=== PATIENT | female | born 1970 | race Caucasian/White ===

== ENCOUNTER 2017-06-16 20:20 | Emergency (ER) | payer OTHER ==
--- NOTE | 2017-06-16 21:04 | ER Document Report ---
ED General - General Chief Complaint: Lower Abdominal Pain Stated Complaint: ABDOMINAL PAIN Time Seen by Provider: 06/16/17 20:57 Notes: This is a 47-year-old female patient who presents with chief complaint of left lower quadrant pain. Sudden onset approximately 1830. Sharp. Radiates to the labia. Some nausea. Pain was rated as a 4/5 on a numeric pain scale. No back pain. No fever. Patient did have a gastric bypass surgery in February 2017. TRAVEL OUTSIDE OF THE [place] IN LAST 30 DAYS: No - HPI Onset: Just prior to arrival - Related Data Allergies/Adverse Reactions: latex [Latex] Allergy (Severe, Verified 06/16/17 21:04) rash Past Medical History - General Information source: Patient - Social History Smoking Status: Never Smoker Cigarette use (# per day): No Frequency of alcohol use: Social Drug Abuse: None Lives with: Family Family History: Reviewed & Not Pertinent Patient has suicidal ideation: No Patient has homicidal ideation: No - Past Medical History Cardiac Medical History: Reports: Hx Hypertension Denies: Hx Coronary Artery Disease, Hx Heart Attack Pulmonary Medical History: Reports: Hx Asthma - hx in past no meds Denies: Hx Bronchitis, Hx COPD, Hx Pneumonia Neurological Medical History: Denies: Hx Cerebrovascular Accident, Hx Seizures Endocrine Medical History: Reports: Hx Diabetes Mellitus Type 2 Renal/ Medical History: Denies: Hx Peritoneal Dialysis GI Medical History: Musculoskeltal Medical History: Denies Hx Arthritis, Reports Hx Muscle Weakness - R. ankle Infectious Medical History: Past Surgical History: Reports: Hx Abdominal Surgery - gastric bypass, Hx Section - X2, Hx Gynecologic Surgery - UTERAN ABLASION, Hx Orthopedic Surgery - RIGHT ANKLE/RIGHT KNEE, Hx Tonsillectomy, Hx Tubal Ligation. Denies: Hx Pacemaker - Immunizations Hx Diphtheria, Pertussis, Tetanus Vaccination: Yes Review of Systems - Review of Systems Constitutional: denies: Fever, Malaise, Weakness EENT: denies: Blurred vision, Difficulty swallowing, Mouth swelling Cardiovascular: denies: Chest pain, Palpitations, Heart racing, Dyspnea, Lightheaded, Edema Respiratory: denies: Cough, Hurts to breathe, Hemoptysis, Short of breath, Wheezing Gastrointestinal: Abdominal pain, Vomiting. denies: Diarrhea, Nausea Genitourinary: denies: Burning, Dysuria, Discharge, Frequency, Urgency Female Genitourinary: denies: Vaginal discharge, Vaginal bleeding, Vaginal odor Musculoskeletal: denies: Back pain, Gout, Joint pain, Joint swelling, Muscle pain, Muscle stiffness Skin: denies: Dryness, Lumps, Rash Hematologic/Lymphatic: denies: Anemia, Blood clots, Easy bleeding, Easy bruising Neurological/Psychological: denies: Confusion, Dementia, Depression, Anxiety Physical Exam - Vital signs Vitals: Temp Pulse Resp BP Pulse Ox 98.1 F 76 14 145/105 H 100 06/16/17 20:27 06/16/17 20:27 06/16/17 20:27 06/16/17 20:27 06/16/17 20:27 Interpretation: Normal - General General appearance: Appears well, Alert - HEENT Head: Normocephalic, Atraumatic Eyes: Normal Pupils: PERRL - Respiratory Respiratory status: No respiratory distress Chest status: Nontender Breath sounds: Normal Chest palpation: Normal - Cardiovascular Rhythm: Regular Heart sounds: Normal auscultation Murmur: No - Abdominal Inspection: Normal Distension: No distension Bowel sounds: Normal Tenderness: Tender, Other - Mild tenderness palpation left lower quadrant. No guarding. No rebound. Organomegaly: No organomegaly Notes: Mild left lower quadrant tenderness. No guarding. No rebounding. - Back Back: Normal, Nontender - Extremities General upper extremity: Normal inspection, Nontender, Normal color, Normal ROM , Normal temperature General lower extremity: Normal inspection, Nontender, Normal color, Normal ROM , Normal temperature, Normal weight bearing. No: Tiara's sign - Neurological Neuro grossly intact: Yes Cognition: Normal Orientation: AAOx4 Ang Coma Scale Eye Opening: Spontaneous Ang Coma Scale Verbal: Oriented Saunemin Coma Scale Motor: Obeys Commands Ang Coma Scale Total: 15 Speech: Normal Motor strength normal: LUE, RUE, LLE, RLE Sensory: Normal - Psychological Associated symptoms: Normal affect, Normal mood - Skin Skin Temperature: Warm Skin Moisture: Dry Skin Color: Normal Course - Re-evaluation Re-evalutation: 06/16/17 21:34 Will order Toradol, Zofran, fluids, CT abdomen and pelvis, labs and reassess. 06/16/17 22:41 Laboratory 06/16/17 06/16/17 06/16/17 20:50 20:50 21:34 WBC 9.5 RBC 4.42 Hgb 12.8 Hct 37.6 MCV 85 MCH 28.8 MCHC 33.9 RDW 13.6 Plt Count 228 Seg Neutrophils % 61.6 Lymphocytes % 29.1 Monocytes % 7.9 Eosinophils % 0.7 Basophils % 0.7 Absolute Neutrophils 5.9 Absolute Lymphocytes 2.8 Absolute Monocytes 0.8 Absolute Eosinophils 0.1 Absolute Basophils 0.1 Sodium 139.4 Potassium 4.0 Chloride 105 Carbon Dioxide 22 Anion Gap 12 BUN 20 Creatinine 0.75 Est GFR ( Amer) > 60 Est GFR (Non-Af Amer) > 60 Glucose 108 Calcium 9.7 Total Bilirubin 0.3 Direct Bilirubin 0.2 Neonat Total Bilirubin Not Reportable Neonat Direct Bilirubin Not Reportable Neonat Indirect Bili Not Reportable AST 21 ALT 23 Alkaline Phosphatase 80 Total Protein 6.4 Albumin 4.3 Urine Color YELLOW Urine Appearance SLIGHTLY-CLOUDY Urine pH 7.0 Ur Specific [place] 1.011 Urine Protein NEGATIVE Urine Glucose (UA) NEGATIVE Urine Ketones 20 H Urine Blood LARGE H Urine Nitrite NEGATIVE Urine Bilirubin NEGATIVE Urine Urobilinogen NEGATIVE Ur Leukocyte Esterase NEGATIVE Urine WBC (Auto) 3 Urine RBC (Auto) >182 Urine Bacteria (Auto) TRACE Squamous Epi Cells Auto 3 Urine Mucus (Auto) MANY Urine Ascorbic Acid NEGATIVE Abdomen/Pelvis CT 06/16/17 21:09 IMPRESSION: NO ACUTE PROCESS IN THE ABDOMEN OR PELVIS. 06/16/17 23:10 Patient with significant amount of blood in your urine with sudden onset of pain that radiated down to the left lower quadrant into the labia region. CT scan does not show stone however based on her presentation and her symptoms more likely this is what is going on. Pain was completely resolved with Toradol. At this time I am recommending patient continue with oral hydration. Return in 24 hours or sooner if pain is getting worse or no better. Patient is comfortable with this plan. Anticipate discharge shortly. - Vital Signs Vital signs: Temp Pulse Resp BP Pulse Ox 98.1 F 76 14 145/105 H 100 06/16/17 20:27 06/16/17 20:27 06/16/17 20:27 06/16/17 20:27 06/16/17 20:27 - Laboratory Result Diagrams: 06/16/17 20:50 06/16/17 20:50 Laboratory results interpreted by me: 06/16/17 21:34 Urine Ketones 20 H Urine Blood LARGE H Discharge - Discharge Clinical Impression: Kidney stone on left side Condition: Good Disposition: HOME, SELF-CARE Instructions: Kidney Stone ([facility]) Additional Instructions: Based on your presentation and the fact that you have blood in your urine you more than likely had a kidney stone. In the event that your pain gets worse or no better over the next 12-24 hours it will be very important to return to the emergency department for repeat evaluation. Referrals: TRUONG BARRIOS MD [[facility]] - Follow up as needed
[2017-06-16] MEDS ORDERED: NORMAL SALINE 1000 ML 1,000 ML IV ONE (21:09)
[2017-06-16] MEDS ORDERED: KETOROLAC TROMETHAMINE INJ/PF 30 MG/1 ML SDV IV ONE (21:09)
[2017-06-16] MEDS ORDERED: ONDANSETRON HCL INJ/PF 4 MG/2 ML SDV IV ONE (21:10)
[2017-06-16 21:48] LABS: ABSOLUTE BASOPHILS # (AUTO) 0.1 10^3/uL (0.0-0.2); ABSOLUTE EOSINOPHILS # (AUTO) 0.1 10^3/uL (0.0-0.6); ABSOLUTE LYMPHOCYTES (AUTO) 2.8 10^3/uL (0.5-4.7); ABSOLUTE MONOCYTES (AUTO) 0.8 10^3/uL (0.1-1.4); ABSOLUTE NEUT (AUTO) 5.9 10^3/uL (1.7-8.2); BASOPHILS % (AUTO) 0.7 % (0-2); EOSINOPHILS % (AUTO) 0.7 % (0-6); HEMATOCRIT 37.6 % (36.0-47.0); HEMOGLOBIN 12.8 g/dL (12.0-15.5); LYMPHOCYTES % (AUTO) 29.1 % (13-45); MEAN CORPUSCULAR HEMOGLOBIN 28.8 pg (27.0-33.4); MEAN CORPUSCULAR HGB CONC 33.9 g/dL (32.0-36.0); MEAN CORPUSCULAR VOLUME 85 fl (80-97); MONOCYTES % (AUTO) 7.9 % (3-13); PLATELET COUNT 228 10^3/uL (150-450); RED BLOOD COUNT 4.42 10^6/uL (3.72-5.28); RED CELL DISTRIBUTION WIDTH 13.6 % (11.5-14.0); SEGMENTED NEUTROPHILS % (AUTO) 61.6 % (42-78); TOTAL CELLS COUNTED % (AUTO) 100 %; WHITE BLOOD COUNT 9.5 10^3/uL (4.0-10.5)
[2017-06-16 21:57] LABS: APPEARANCE,URINE SLIGHTLY-CLOUDY; BILIRUBIN,URINE NEGATIVE (NEGATIVE); COLOR,URINE YELLOW; GLUCOSE, URINE NEGATIVE (NEGATIVE); KETONES,URINE 20 mg/dL (NEGATIVE); LEUKOCYTE ESTERASE,URINE NEGATIVE (NEGATIVE); NITRITE,URINE NEGATIVE (NEGATIVE); PROTEIN,URINE NEGATIVE (NEGATIVE); URINE SPECIFIC GRAVITY 1.011; UROBILINOGEN,URINE NEGATIVE mg/dL (<2.0)
[2017-06-16 21:57] LABS: ALANINE AMINOTRANSFERASE 23 U/L (9-52); ALBUMIN 4.3 g/dL (3.5-5.0); ALKALINE PHOSPHATASE 80 U/L (38-126); ANION GAP 12 (5-19); ASPARTATE AMINO TRANSFERASE 21 U/L (14-36); BILIRUBIN,DIRECT 0.2 mg/dL (0.0-0.4); BILIRUBIN,TOTAL 0.3 mg/dL (0.2-1.3); BLOOD UREA NITROGEN 20 mg/dL (7-20); CALCIUM 9.7 mg/dL (8.4-10.2); CARBON DIOXIDE 22 mmol/L (22-30); CHLORIDE 105 mmol/L (98-107); GLUCOSE 108 mg/dL (75-110); SODIUM 139.4 mmol/L (137-145); TOTAL PROTEIN 6.4 g/dL (6.3-8.2)
--- NOTE | 2017-06-16 22:06 | RADIOLOGY REPORT (SQ) ---
EXAM DESCRIPTION: CT ABD/PELVIS NO ORAL OR IV COMPLETED DATE/TIME: 06/16/2017 9:42 pm REASON FOR STUDY: llq pain COMPARISON: None. TECHNIQUE: CT scan of the abdomen and pelvis performed without intravenous or oral contrast. Images reviewed with lung, soft tissue, and bone windows. Reconstructed coronal and sagittal MPR images revi ewed. All images stored on PACS. All CT scanners at this facility use dose modulation, iterative reconstruction, and/or weight based d osing when appropriate to reduce radiation dose to as low as reasonably achievable (ALARA). [facility]: Dose Right [facility]: CareDose [facility]: Dose Right [facility]: Teradose 4D [facility]: Smart Vacatia RADIATION DOSE: CT Rad equipment meets quality standard of care and radiation dose reduction techniq ues were employed. CTDIvol: 14.6 mGy. DLP: 786 mGy-cm.mGy. LIMITATIONS: None. FINDINGS: LOWER CHEST: No significant findings. No nodules or infiltrates. NON-CONTRASTED LIVER, SPLEEN, ADRENALS: Evaluation limited by lack of IV contrast. No identified sign ificant masses. PANCREAS: No masses. No peripancreatic inflammatory changes. GALLBLADDER: No identified stones by CT criteria. No inflammatory changes to suggest cholecystitis. RIGHT KIDNEY AND URETER: No suspicious masses. Assessment limited by lack of IV contrast. No signif icant calcifications. No hydronephrosis or hydroureter. LEFT KIDNEY AND URETER: No suspicious masses. Assessment limited by lack of IV contrast. No signifi cant calcifications. No hydronephrosis or hydroureter. AORTA AND RETROPERITONEUM: No aneurysm. No retroperitoneal masses or adenopathy. BOWEL AND PERITONEAL CAVITY: Prior gastric bypass. Sigmoid diverticulosis. No obvious masses or inf lammatory changes. No free fluid. APPENDIX: Normal. PELVIS, BLADDER, AND ABDOMINAL WALL:No abnormal masses. No free fluid. Bladder normal. BONES: No significant findings. OTHER: No other significant finding. IMPRESSION: NO ACUTE PROCESS IN THE ABDOMEN OR PELVIS. COMMENT: Quality ID # [id number]: Final reports with documentation of one or more dose reduction techniques (e.g., Automated exposure control, adjustment of the mA and/or kV according to patient size, use of iterative reconstruction technique) TECHNICAL DOCUMENTATION: JOB ID: [id number] [place]-72 2010 [employer]- All Rights Reserved Reading location - IP/workstation name: [email or web address]
[2017-06-16] MEDS ORDERED: HYDROCODONE/ACETAMINOPHEN 5-325 MG (6 TAB/ER DISP) PO PRN (23:14)
[2017-06-16 23:59] VITALS: BP 110/73
== END 2017-06-17 | disposition home or self-care (01) ==
LOC: ER 20:20
DX: N20.0 Calculus of kidney (principal); R10.32 Left lower quadrant pain; R11.0 Nausea; Z98.84 Bariatric surgery status
CPT/HCPCS: 99284; 96361; 96374; 96375; 36415; 85025; 80053; 81001; 74176; J1885; J2405; J7030

== ENCOUNTER 2019-12-09 10:51 | Emergency (ER) | payer OTHER ==
[2019-12-09 11:01] VITALS: BP 110/65
--- NOTE | 2019-12-09 11:21 | ER Document Report ---
HPI - HPI Time Seen by Provider: 12/09/19 11:16 Notes: CHIEF COMPLAINT: Lower extremity injuries HPI: 49-year-old female presenting for injury to the lateral right foot lateral left ankle while slipping on the deck today and falling. Denies other injuries. Feels she is able to weight-bear on the right foot but having difficulty weightbearing on the left ankle ROS: See HPI - all other systems were reviewed and are otherwise negative Constitutional: no fever Integumentary: no rash Allergy: no hives Musculoskeletal: + extremity pain or swelling Neurological: no numbness/tingling, + weakness MEDICATIONS: I agree with the patient medications as charted by the RN. ALLERGIES: I agree with the allergies as charted by the RN. PAST MEDICAL HISTORY/PAST SURGICAL HISTORY: Reviewed and agree as charted by RN. SOCIAL HISTORY: Reviewed and agree as charted by RN. FAMILY HISTORY: No significant familial comorbid conditions directly related to patient complaint EXAM: Reviewed vital signs as charted by RN. CONSTITUTIONAL: Alert and oriented and responds appropriately to questions. Well-appearing; well-nourished HEAD: Normocephalic; atraumatic EYES: Conjunctivae clear, sclerae non-icteric ENT: normal nose; no rhinorrhea; moist mucous membranes NECK: Supple without meningismus CARD:symmetric distal pulses RESP: Normal chest excursion without splinting or tachypnea ABD/GI: non-distended BACK: The back appears normal EXT: Normal ROM in all joints; soft tissue swelling and bruising over the proximal and lateral aspect of the right foot just inferior to the distal lateral malleolus. There is no pain on palpation of the proximal fibular region of the right or left lower extremities. There is no tenderness directly over the medial or lateral malleolus of the right ankle. There is no tarsal pain on palpation of the right foot. Dorsalis pedis and posterior tibial pulses are present and equal in both feet and ankles. Sensation intact in the toes with capillary refill less than 3 seconds. There is no tenderness on palpation of the medial aspect of the left ankle but there is tenderness on palpation over the distal lateral malleolus of the left ankle, no tarsal or metatarsal pain in the left foot on palpation SKIN: Normal color for age and race; warm; dry; good turgor; no acute lesions noted NEURO: Moves all extremities equally; Motor and sensory function intact PSYCH: The patient's mood and manner are appropriate. Grooming and personal hygiene are appropriate. MDM: 49-year-old female injury to the right foot left ankle will obtain x-ray for fracture - REPRODUCTIVE Reproductive: DENIES: : Past Medical History - Social History Smoking Status: Unknown if Ever Smoked Family History: Reviewed & Not Pertinent - Past Medical History Cardiac Medical History: Reports: Hx Hypertension Denies: Hx Coronary Artery Disease, Hx Heart Attack Pulmonary Medical History: Reports: Hx Asthma - hx in past no meds Denies: Hx Bronchitis, Hx COPD, Hx Pneumonia Neurological Medical History: Denies: Hx Cerebrovascular Accident, Hx Seizures Endocrine Medical History: Reports: Hx Diabetes Mellitus Type 2 Renal/ Medical History: Denies: Hx Peritoneal Dialysis GI Medical History: Musculoskeletal Medical History: Denies Hx Arthritis, Reports Hx Muscle Weakness - R. ankle Infectious Medical History: Past Surgical History: Reports: Hx Abdominal Surgery - gastric bypass, Hx Section - X2, Hx Gynecologic Surgery - UTERAN ABLASION, Hx Orthopedic Surgery - RIGHT ANKLE/RIGHT KNEE, Hx Tonsillectomy, Hx Tubal Ligation. Denies: Hx Pacemaker - Immunizations Hx Diphtheria, Pertussis, Tetanus Vaccination: Yes Vertical Provider Document - INFECTION CONTROL TRAVEL OUTSIDE OF THE [place] IN LAST 30 DAYS: No Course - Re-evaluation Re-evalutation: 12/09/19 12:18 X-ray imaging does not show evidence of fracture, cannot take anti- inflammatories because of history of gastric bypass per the patient. - Vital Signs Vital signs: Temp Pulse Resp BP Pulse Ox 98.1 F 72 18 110/65 96 12/09/19 10:57 12/09/19 10:57 12/09/19 10:57 12/09/19 10:57 12/09/19 10:57 Discharge - Discharge Clinical Impression: Fall Qualifiers: Encounter type: initial encounter Qualified Code(s): W19.XXXA - Unspecified fall, initial encounter Right foot sprain Qualifiers: Encounter type: initial encounter Qualified Code(s): S93.601A - Unspecified sprain of right foot, initial encounter Left ankle sprain Qualifiers: Encounter type: initial encounter Involved ligament of ankle: unspecified ligament Qualified Code(s): S93.402A - Sprain of unspecified ligament of left ankle, initial encounter Condition: Stable Disposition: HOME, SELF-CARE Additional Instructions: X-ray imaging does not reveal evidence of fracture. Ice the foot and ankle as much as possible. Weightbearing as tolerated. Follow-up with orthopedics for further evaluation and treatment. Call for appointment. Prescriptions: Tramadol HCl [Ultram 50 mg Tablet] 50 mg PO Q6HP PRN #12 tab PRN Reason: Referrals: [facility] [Primary Care Provider] - Follow up as needed CRISTINE THOMSON DO [ACTIVE STAFF] - Follow up as needed
--- NOTE | 2019-12-09 11:54 | RADIOLOGY REPORT (SQ) ---
EXAM DESCRIPTION: FOOT RIGHT COMPLETE IMAGES COMPLETED DATE/TIME: 12/09/2019 11:39 am REASON FOR STUDY: lateral injury COMPARISON: None. NUMBER OF VIEWS: Three views. TECHNIQUE: AP, lateral and oblique radiographic images acquired of the right foot. LIMITATIONS: None. FINDINGS: MINERALIZATION: Normal. BONES: No acute fracture or dislocation. No worrisome bone lesions. JOINTS: No effusions. SOFT TISSUES: No soft tissue swelling. No foreign body. OTHER: No other significant finding. IMPRESSION: No acute fracture or malalignment TECHNICAL DOCUMENTATION: JOB ID: [id number] 2010 [employer]- All Rights Reserved Reading location - IP/workstation name: [email or web address]
--- NOTE | 2019-12-09 11:55 | RADIOLOGY REPORT (SQ) ---
EXAM DESCRIPTION: ANKLE LEFT COMPLETE IMAGES COMPLETED DATE/TIME: 12/09/2019 11:39 am REASON FOR STUDY: lateral injury COMPARISON: Left ankle films 07/16/2011 NUMBER OF VIEWS: Three views. TECHNIQUE: AP, lateral, and oblique radiographic images acquired of the left ankle. LIMITATIONS: None. FINDINGS: MINERALIZATION: Normal. BONES: No acute fracture or dislocation. No worrisome bone lesions. Tiny plantar calcaneal spur JOINTS: Ankle joint effusion. Normal alignment at the ankle mortise SOFT TISSUES: Lateral malleolar soft tissue swelling. No foreign body. OTHER: No other significant finding. IMPRESSION: Ankle joint effusion with lateral soft tissue swelling. No acute fracture or malalignme nt. TECHNICAL DOCUMENTATION: JOB ID: [id number] 2010 [employer]- All Rights Reserved Reading location - IP/workstation name: [email or web address]
== END 2019-12-09 12:25 | disposition home or self-care (01) ==
LOC: ER 10:51
DX: S93.601A Unspecified sprain of right foot, initial encounter (principal); S93.402A Sprain of unspecified ligament of left ankle, initial encounter; W01.0XXA Fall on same level from slipping, tripping and stumbling without subsequent striking against object, initial encounter; I10 Essential (primary) hypertension; J45.909 Unspecified asthma, uncomplicated; E11.9 Type 2 diabetes mellitus without complications; Z98.84 Bariatric surgery status
CPT/HCPCS: 99283